=== PATIENT | male | born 1965 | race Caucasian/White ===

== ENCOUNTER 2017-04-24 10:43 | Emergency (ER) | payer BC, OTHER ==
[~2017-04-24] VITALS: Ht 167.6 cm; Wt 68.5 kg
[2017-04-24 10:58] VITALS: Ht 167.6 cm; Wt 68.5 kg
--- NOTE | 2017-04-24 11:24 | ERD ---
ER Documentation Chief Complaint Chief Complaint NECK PAIN & COUGH SINCE JANUARY, SEEN BY PMD JOHN The patient is a 51-year-old male, presenting to the ER because of chronic neck pain, intermittent right arm pain with neck movement since January 2017. He also complains of intermittent cough for the last 2 days, denies fever, chills, chest pain, chest pain with exertion/vomiting/diaphoresis, dyspnea, abdominal pain, vomiting, dysuria. He does not smoke nor drink Past medical history: None Past surgical history: Appendectomy ROS All systems reviewed and are negative except as per history of present illness. Medications Home Meds Active Scripts Ibuprofen* (Motrin*) 600 Mg Tab, 600 MG PO Q6, #30 TAB Prov:VLAD RAY MD 04/24/17 Allergies Allergies: Coded Allergies: No Known Allergy (Unverified , 04/24/17) Physical Exam Vitals Vital Signs Date Time Temp Pulse Resp B/P Pulse Ox O2 Delivery O2 Flow Rate FiO2 04/24/17 10:58 98.0 108 18 120/77 99 Physical Exam Const: No acute distress. Head: Atraumatic. Eyes: Normal Conjunctiva. ENT: Normal External Ears, Nose and Mouth. Neck: Full range of motion. No meningismus. Resp: Clear to auscultation bilaterally. Cardio: Regular rate and rhythm. Abd: Soft, non distended, normal bowel sounds, non tender. Skin: No petechiae or rashes. Back: No midline or flank tenderness. Ext: No cyanosis, or edema. Neur: Awake and alert. No focal deficit Psych: Normal Mood and Affect. Procedures/[place] [id number] Radiology Main Line: [phone] DIAGNOSTIC IMAGING REPORT Patient: JAMARI KIRAN : 1965 Age: 51 Sex: M MR #: [id number] DOS: 04/24/17 1140 Ordering MD: VLAD RAY MD Location: [facility] Room/Bed: PROCEDURE: XR Chest. CLINICAL INDICATION: Shortness of breath. TECHNIQUE: Single frontal view. COMPARISON: None. FINDINGS: The lungs are clear. The heart size is normal. There is no pleural effusion. There is no pneumothorax. IMPRESSION: 1. Normal chest radiograph. RPTAT: QQ .Luis Leonardo MD, MD Date Time Electronically viewed and signed by .Luis Leonardo MD, MD on 04/24/2017 12:19 .R/ CC: VLAD RAY MD MEDICAL MAKING DECISION: The patient is a 51-year-old male, presenting to the ER because of chronic cervical radiculopathy, acute cough. He is stable for outpatient follow-up The differential diagnoses considered include but are not limited to asthma, COPD, pneumonia, pulmonary embolus, pleural effusion, congestive heart failure. Departure Diagnosis: Primary Impression: Cervical radiculopathy Additional Impression: Cough Condition: Good Comments He was discharged with Motrin I discussed the findings with the patient. I advised the patient to follow-up with the primary physician in about 1-2 days, sooner if needed and return if any concern. He was advised to have a neck MRI for further evaluation VLAD RAY MD Apr 24, 2017 11:23
--- NOTE | 2017-04-24 12:19 | RADRPT ---
PROCEDURE: XR Chest. CLINICAL INDICATION: Shortness of breath. TECHNIQUE: Single frontal view. COMPARISON: None. FINDINGS: The lungs are clear. The heart size is normal. There is no pleural effusion. There is no pneumothorax. IMPRESSION: 1. Normal chest radiograph. RPTAT: QQ .Luis Leonardo MD, MD Date Time Electronically viewed and signed by .uLis Leonardo MD, on 04/24/2017 12:19 .R/
[2017-04-24] MEDS ORDERED: IBUP-1542 PO (12:44)
== END 2017-04-24 12:50 | disposition home or self-care (01) ==
LOC: FTE 10:43
DX: M54.12 Radiculopathy, cervical region (principal); R05 Cough
CPT/HCPCS: 71010